=== PATIENT | female | born 1960 | race Caucasian/White ===

== ENCOUNTER 2016-06-03 11:22 | Emergency (ER) | payer BC ==
--- NOTE | ~2016-06-03 | CR126 ---
[facility] A Service of [facility] & [facility] RADIOLOGY TEXT RESULTS PATIENT: SOHAM VALLADARES LOCATION: [facility] : 60 UNIT #: [id number] AGE: [address]: Carina Ryan MD SEX: F ORDER DR: [id number] [facility] [address] [place], [place] [address] [id number] MR#: [id number] Acc #: [id number] NAME: SOHAM VALLADARES : 1960 SEX: F STUDY DATE/TIME: 06/03/2016 11:55 UNIT: [facility] ROOM: STUDY DESCRIPTION: CR Foot Complete Min 3 View Lt Attending Physician: Carina Ryan M.D. Ordering Physician: Carina Ryan M.D. Primary Care Physician: No Primary Care Physician MEDICAL IMAGING REPORT This report is preliminary unless electronic signature is present EXAM Left foot series 06/03/2016 INDICATIONS Laceration injury, possible foreign body, splinter in her foot, pain and swelling and puncture wound in the third digit area that occurred today. 3 views left foot. COMPARISON STUDIES No comparisons FINDINGS There is a moderate-sized calcaneal spur. There are degenerative changes in the midfoot and hindfoot. No acute fracture or retained opaque foreign body. IMPRESSION Degenerative changes otherwise negative. No retained opaque foreign body. Dictated by... Jayson Melo M.D. THIS IS AN ELECTRONICALLY VERIFIED REPORT Jayson Melo M.D. at 06/03/2016 5:20 PM Char TD: 06/03/2016 15:59 JOB #: [id number] MEDICAL IMAGING REPORT COPY
[~2016-06-03 11:22] MED LIST: CLARITIN D
== END 2016-06-03 14:32 | disposition home or self-care (01) ==
LOC: CED 11:22
DX: S90.852A Superficial foreign body, left foot, initial encounter (principal); W45.8XXA Other foreign body or object entering through skin, initial encounter; Y92.9 Unspecified place or not applicable; Z88.2 Allergy status to sulfonamides; Z88.8 Allergy status to other drugs, medicaments and biological substances
CPT/HCPCS: 73630; 99283